=== PATIENT | female | born 1995 | race Caucasian/White ===

== ENCOUNTER 2016-02-25 21:26 | Emergency (ER) | payer OTHER ==
[~2016-02-25] VITALS: Ht 154.9 cm; Wt 95.5 kg
[~2016-02-25 21:26] MED LIST: BACTRIM,SEPT1 TABLET PO; CIPRO500 MG PO; Colace PO; Feosol PO; KEFLEX500 MG PO; MACRODANTIN100 MG PO; Macrobid PO; NATALCARE RX1 TABLET PO; NO MEDS; PRENATAL TABLE1 EAC3 PO; TYLENOL REGULA325 MG PO; ZOFRAN ODT4 MG PO
[2016-02-25 21:29] VITALS: BP 135/64
[2016-02-27] MEDS ORDERED: PREDNISONE50 MG PO (15:03)
== END 2016-02-26 00:32 | disposition left against medical advice (07) ==
LOC: EME 21:26
DX: M79.604 Pain in right leg (principal); Z53.21 Procedure and treatment not carried out due to patient leaving prior to being seen by health care provider

== ENCOUNTER 2016-02-27 14:21 | Emergency (ER) | payer OTHER ==
[~2016-02-27] VITALS: Ht 154.9 cm; Wt 96.3 kg
[2016-02-27] MEDS ORDERED: PREDNISONE50 MG PO (15:03)
[2016-02-27 15:18] VITALS: BP 121/72
== END 2016-02-27 15:27 | disposition home or self-care (01) ==
LOC: EXP 14:21 → EME 14:21 → EXP 15:27
DX: M54.16 Radiculopathy, lumbar region (principal)
CPT/HCPCS: 99281; 99284

== ENCOUNTER 2016-05-10 04:33 | Emergency (ER) | payer OTHER ==
[~2016-05-10] VITALS: Ht 157.5 cm; Wt 94.8 kg
[~2016-05-10 04:33] MED LIST changes: +PREDNISONE50 MG PO
[2016-05-10 05:42] LABS: CHLORIDE 106 mEq/L (99-109); POTASSIUM 3.6 mEq/L (3.7-5.4); SODIUM 138 mEq/L (136-147)
[2016-05-10 05:43] LABS: HEMATOCRIT 40.3 % (36.0-46.0); MCH 28.3 PG (29.0-34.0); MCHC 32.3 G/DL (30.0-36.0); MCV 87.6 FL (83-99); MEAN PLAT.VOLUME 10.8 uM^3 (9.5-12.4); PLATELET COUNT 423 K/uL (156-360); RBC DIS.WIDTH-CV 12.2 % (11.8-14.6); RBC DIS.WIDTH-SD 39.1 % (39-53); WHITE BLOOD COUNT 9.4 K/uL (4.1-10.2)
[2016-05-10 05:44] LABS: GLUCOSE 93 mg/dL (70-99)
[2016-05-10 05:45] LABS: ANION GAP 8 MEQ/L (2-14)
[2016-05-10 05:46] LABS: TOTAL BILIRUBIN 0.4 mg/dL (0.0-1.0)
[2016-05-10 05:48] LABS: ALKALINE PHOSPHATASE 89 IU/L (3-129); GFR ESTIMATE (CALCULATED) > 59 mL/min/
[2016-05-10 05:49] LABS: UREA NITROGEN (BUN) 8 mg/dL (9-23)
[2016-05-10 05:51] LABS: LIPASE 12 U/L (1.0-51.0)
[2016-05-10 05:58] LABS: QUANTITATIVE HCG < 4.0 MIU/ML
[2016-05-10 06:17] LABS: ADD MIUA? YES; BILIRUBIN NEGATIVE; BLOOD NEGATIVE; COLOR YELLOW ((YELLOW)); GLUCOSE (STRIP) NEGATIVE; KETONES NEGATIVE; LEUKOCYTES SMALL; NITRITE NEGATIVE; PROTEIN (STRIP) NEGATIVE; SPECIFIC GRAVITY 1.021 (1.000-1.030); UROBILINOGEN 0.2 MG/DL (0.2-1.0)
[2016-05-10 06:34] LABS: BACTERIA NONE SEEN /HPF; EPITHELIAL CELLS 1+ /HPF; MUCUS TRACE /LPF; RED BLOOD CELLS 0-5 /HPF (0-5); UCUL ADDED? NO
[2016-05-10] MEDS ORDERED: LEVAQUIN500 MG PO (07:18)
[2016-05-10 07:33] VITALS: BP 112/74
== END 2016-05-10 07:34 | disposition home or self-care (01) ==
LOC: EME 04:33
DX: N30.90 Cystitis, unspecified without hematuria (principal); J18.9 Pneumonia, unspecified organism; R10.31 Right lower quadrant pain; Z87.440 Personal history of urinary (tract) infections
CPT/HCPCS: 74176; 80053; 81003; 83690; 84702; 85027; 99281; 99285; J7030

== ENCOUNTER 2016-09-24 20:47 | Emergency (ER) | payer OTHER ==
[~2016-09-24] VITALS: Ht 157.5 cm; Wt 87.1 kg
[~2016-09-24 20:47] MED LIST changes: +LEVAQUIN500 MG PO
[2016-09-24 21:36] LABS: HEMATOCRIT 33.2 % (36.0-46.0); MCH 29.5 PG (29.0-34.0); MCHC 33.7 G/DL (30.0-36.0); MCV 87.4 FL (83-99); MEAN PLAT.VOLUME 11.1 uM^3 (9.5-12.4); PLATELET COUNT 269 K/uL (156-360); RBC DIS.WIDTH-CV 13.2 % (11.8-14.6); RBC DIS.WIDTH-SD 42.5 % (39-53); WHITE BLOOD COUNT 14.7 K/uL (4.1-10.2)
[2016-09-24 21:44] LABS: CHLORIDE 105 mEq/L (99-109); POTASSIUM 3.5 mEq/L (3.7-5.4); SODIUM 136 mEq/L (136-147)
[2016-09-24 21:46] LABS: GLUCOSE 121 mg/dL (70-99)
[2016-09-24 21:46] LABS: ADD MIUA? YES; BILIRUBIN NEGATIVE; BLOOD NEGATIVE; COLOR YELLOW ((YELLOW)); GLUCOSE (STRIP) NEGATIVE; KETONES NEGATIVE; LEUKOCYTES LARGE; NITRITE NEGATIVE; PROTEIN (STRIP) 30; SPECIFIC GRAVITY 1.015 (1.000-1.030); UROBILINOGEN 0.2 MG/DL (0.2-1.0)
[2016-09-24 21:48] LABS: ANION GAP 8 MEQ/L (2-14); TOTAL BILIRUBIN 0.2 mg/dL (0.0-1.0)
[2016-09-24 21:50] LABS: ALKALINE PHOSPHATASE 84 IU/L (3-129); GFR ESTIMATE (CALCULATED) > 59 mL/min/
[2016-09-24 21:51] LABS: UREA NITROGEN (BUN) 5 mg/dL (9-23)
[2016-09-24 22:18] LABS: BACTERIA RARE /HPF; EPITHELIAL CELLS 3+ /HPF; MUCUS TRACE /LPF; RED BLOOD CELLS 0-5 /HPF (0-5); UCUL ADDED? YES; WHITE BLOOD CELLS 40-50 /HPF (0-5)
[2016-09-24 22:36] LABS: AMYLASE 35 IU/L (1-118)
[2016-09-24 22:45] LABS: LIPASE 10 U/L (1.0-51.0)
[2016-09-25] MEDS ORDERED: MACROBID100 MG PO (00:11)
[2016-09-25 00:29] VITALS: BP 118/67
== END 2016-09-25 00:30 | disposition home or self-care (01) ==
LOC: EME 20:47
PROVIDERS: Nurse Practitioner Family
DX: O23.42 Unspecified infection of urinary tract in pregnancy, second trimester (principal); R10.11 Right upper quadrant pain; Z3A.22 22 weeks gestation of pregnancy
CPT/HCPCS: 76705; 80053; 81003; 82150; 83690; 85027; 87086; 99281; 99284

== ENCOUNTER 2016-12-15 14:55 | Outpatient (CLI) | payer OTHER ==
[~2016-12-15] VITALS: Ht 157.5 cm; Wt 88.9 kg
[~2016-12-15 14:55] MED LIST changes: +MACROBID100 MG PO; +NIFEDIPINE10 MG PO
[2016-12-15 15:20] VITALS: BP 118/72
[2016-12-15 16:38] VITALS: BP 103/59
== END 2016-12-15 19:25 | disposition home or self-care (01) ==
LOC: LDRP-OP 14:55 → 2WEST 14:56 → LDRP-OP 03-08 10:52
DX: O46.93 Antepartum hemorrhage, unspecified, third trimester (principal); Z3A.33 33 weeks gestation of pregnancy
CPT/HCPCS: 59025; G0378

== ENCOUNTER 2017-01-07 16:20 | Inpatient (IN) | payer OTHER ==
[~2017-01-07] VITALS: Ht 157.5 cm; Wt 86.6 kg
[2017-01-07] VITALS (8 sets, daily range): BP systolic 95–116; BP diastolic 55–70
[2017-01-07 20:30] LABS: BASOPHIL COUNT 0.1 K/uL (0-0.1); EOSINOPHIL (%) 2.9 % (0-5); EOSINOPHIL COUNT 0.3 K/uL (0-0.3); HEMATOCRIT 35.1 % (36.0-46.0); IMMATURE GRANULOCYTE (%) 1.1 % (0.0-0.7); IMMATURE GRANULOCYTE COUNT 0.1 K/uL; INSTRUMENT ABS NEUTROPHIL CT 8.3 K/uL; LYMPHOCYTE COUNT 2.1 K/uL (1.0-2.8); MCH 28.6 PG (29.0-34.0); MCHC 32.5 G/DL (30.0-36.0); MEAN PLAT.VOLUME 11.7 uM^3 (9.5-12.4); MONOCYTE (%) 7.5 % (3-12); MONOCYTE COUNT 0.9 K/uL (0-0.8); NEUTROPHIL (%) 70.5 % (45-76); NEUTROPHIL COUNT 8.3 K/uL (1.8-6.4); PLATELET COUNT 273 K/uL (156-360); RBC DIS.WIDTH-CV 13.4 % (11.8-14.6); RED BLOOD COUNT 3.99 M/uL (3.80-5.20); WHITE BLOOD COUNT 11.8 K/uL (4.1-10.2)
[2017-01-08] VITALS (11 sets, daily range): BP systolic 99–115; BP diastolic 56–74
[2017-01-09 07:33] VITALS: BP 106/55
[2017-01-09 08:40] LABS: BASOPHIL COUNT 0.1 K/uL (0-0.1); EOSINOPHIL (%) 2.1 % (0-5); EOSINOPHIL COUNT 0.3 K/uL (0-0.3); HEMATOCRIT 29.9 % (36.0-46.0); IMMATURE GRANULOCYTE (%) 0.9 % (0.0-0.7); IMMATURE GRANULOCYTE COUNT 0.1 K/uL; INSTRUMENT ABS NEUTROPHIL CT 11.1 K/uL; LYMPHOCYTE COUNT 2.7 K/uL (1.0-2.8); MCH 29.5 PG (29.0-34.0); MCHC 32.8 G/DL (30.0-36.0); MCV 90.1 FL (83-99); MEAN PLAT.VOLUME 11.9 uM^3 (9.5-12.4); MONOCYTE (%) 5.3 % (3-12); MONOCYTE COUNT 0.8 K/uL (0-0.8); NEUTROPHIL (%) 73.5 % (45-76); NEUTROPHIL COUNT 11.1 K/uL (1.8-6.4); PLATELET COUNT 238 K/uL (156-360); RBC DIS.WIDTH-CV 13.8 % (11.8-14.6); RBC DIS.WIDTH-SD 45.2 % (39-53); RED BLOOD COUNT 3.32 M/uL (3.80-5.20); WHITE BLOOD COUNT 15.1 K/uL (4.1-10.2)
[2017-01-09 15:21] VITALS: BP 105/59
[2017-01-10 07:22] VITALS: BP 104/64
[2017-01-10] MEDS ORDERED: HEMOCYTE324 MG PO (10:27)
[2017-01-10] MEDS ORDERED: IBUPROFEN800 MG PO (10:27)
[2017-01-10] MEDS ORDERED: DOCUSATE SODIU100 MG PO (10:27)
== END 2017-01-10 17:30 | disposition home or self-care (01) | DRG 775 ==
LOC: LDRP-OP 16:20 → 2WEST 16:21 → LDRP-OP 03-08 22:00
PROVIDERS: Advanced Practice Midwife
PROC: 10E0XZZ Delivery of Products of Conception, External Approach (ICD-10-PCS; principal; 2017-01-08)
DX: O42.90 Premature rupture of membranes, unspecified as to length of time between rupture and onset of labor, unspecified weeks of gestation (principal); O60.14X0 Preterm labor third trimester with preterm delivery third trimester, not applicable or unspecified; O76 Abnormality in fetal heart rate and rhythm complicating labor and delivery; Z3A.36 36 weeks gestation of pregnancy; Z37.0 Single live birth; D62 Acute posthemorrhagic anemia; O99.02 Anemia complicating childbirth; O69.1XX0 Labor and delivery complicated by cord around neck, with compression, not applicable or unspecified; Z68.38 Body mass index [BMI] 38.0-38.9, adult; E66.9 Obesity, unspecified
CPT/HCPCS: 85025; G0378; J1050; J7120